=== PATIENT | female | born 2000 | race Caucasian/White ===

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

== ENCOUNTER 2021-09-01 01:25 | Observation (INO) | payer OTHER ==
[~2021-09-01] VITALS: Ht 165.1 cm; Wt 76.5 kg
[2021-09-01 02:02] LABS: COLLECTION METHOD CLEAN CATCH
[2021-09-01 02:11] LABS: BUDDING YEAST Present (NOT PRESENT); MUCOUS Present (NOT PRESENT); URINE BACTERIA None Seen /hpf (NONE SEEN); URINE RBC 0-2 /hpf (0-2)
[2021-09-01 02:12] LABS: PH 6 (5-8); URINE APPEARANCE Clear (CLEAR/HAZY); URINE BILIRUBIN Negative (NEGATIVE); URINE BLOOD Negative (NEGATIVE); URINE COLOR Yellow (YELLOW); URINE GLUCOSE Negative (NEGATIVE); URINE KETONE 1+ (NEGATIVE); URINE LEUKOCYTE ESTERASE Negative (NEGATIVE); URINE NITRATE Negative (NEGATIVE); URINE PROTEIN(semi-quant) Negative (NEGATIVE); URINE UROBILINOGEN Negative (NEGATIVE)
[2021-09-01 02:17] LABS: TRICYCLIC ANTIDEPRESS URINE NEGATIVE
[2021-09-01 02:40] LABS: BASO % 0.2 % (0.0-2.0); GRAN # 11.7 K/mm3 (1.4-6.5); GRAN % 89.1 % (42.2-75.2); HEMATOCRIT 40.8 % (35.0-45.0); HEMOGLOBIN 14.1 g/dl (12.0-15.0); LYMPH % 7.7 % (20.0-51.0); MEAN CELL VOLUME 87 fl (80.0-95.0); MEAN CORPUSCULAR HEMOGLOBIN 30 pg (26-32); MEAN CORPUSCULAR HGB CONC 35 g/dl (33.0-37.0); MONO # 0.4 K/mm3 (0.1-0.6); MONO % 2.8 % (1.7-9.3); PLATELET COUNT 277 K/mm3 (130-400); RED BLOOD COUNT 4.67 M/mm3 (4.10-5.30); REDCELL DISTRIBUTION WIDTH-CV 11.9 % (11.5-14.5)
[2021-09-01 03:01] LABS: ALANINE AMINOTRANSFERASE 35 U/L (0-55); ALKALINE PHOSPHATASE 53 U/L (40-150); ANION GAP 11 mmol/L (7-16); AST,SGOT 20 U/L (5-34); BILIRUBIN,TOTAL 0.4 mg/dL (0.2-1.2); BLOOD UREA NITROGEN 10 mg/dL (7-19); CALCIUM 9.6 mg/dL (8.4-10.2); CARBON DIOXIDE 22 mmol/L (22-29); CHLORIDE 105 mmol/L (98-107); CREATININE, serum 0.87 mg/dL (0.57-1.11); GLUCOSE 107 mg/dL (70-99); LIPASE 17 U/L (8-78); POTASSIUM 3.9 mmol/L (3.5-4.5); SODIUM 138 mmol/L (136-145); TOTAL PROTEIN 7.5 gm/dL (6.2-8.1)
[2021-09-01 03:07] LABS: TROPONIN-I < 0.010 ng/mL (0.00-0.033)
--- NOTE | 2021-09-01 08:10 | NUR ---
PT TO FLOOR IN ROOM 349 FROM ED. PT IS A/O X4. LUNGS CTA, BOWEL SOUNDS PRESENT. PT C\O RLQ PX 4\10. PLAN ON APPY LATER TODAY. REPORT FROM [facility]. ASSESSMENTS COMPLETE. ORIENTED PATIENT TO ROOM.
[2021-09-01 08:49] VITALS: BP 112/64; PULSE 97; TEMP 98.7
--- NOTE | 2021-09-01 10:29 | NUR ---
Social Work student and SHARONA Valle met with patient to discuss discharge planning. Patient lives here in [place] with her fiance, Graeme(ph#[phone]). Patient's listed EC is her mother, Mark(ph#[phone]). Patient states that her PCP is Dr. Hendricks, and she receives her medications from [facility]. Patient does not utilize any DME, and she is independent with her ADL's. Patient does not have a DPOA-HC on file. Patient does not have any children. Discharge plan: Home
[2021-09-01] MEDS ORDERED: SPRINTEC 35 MCG1 TAB PO (10:32)
[2021-09-01 11:34] VITALS: BP 120/61; PULSE 90; TEMP 98.5
--- NOTE | 2021-09-01 12:07 | NUR ---
PT TO SURGERY PER BED @1150
[2021-09-01] MEDS ORDERED: NORCO 325 MG-51 TAB PO (12:47)
[2021-09-01 13:12] VITALS: TEMP 98.5
[2021-09-01 13:50] VITALS: BP 116/59; PULSE 77
--- NOTE | 2021-09-01 13:50 | NUR ---
Patient to room 7 per hospital bed and stands and tranfers from bed to cart. Tolerates activity well. IV fluids infusing. Bandaids x3 on abdomen covering lap sites dry and intact. Siderails up x2 and call light in reach. Friend in room. Taking sips of water. Denies pain or nausea.
[2021-09-01 14:05] VITALS: BP 99/53; PULSE 83
--- NOTE | 2021-09-01 14:05 | NUR ---
Continues to deny nausea or pain. Given muffin to eat and sipping on water.
[2021-09-01 14:20] VITALS: BP 104/56; PULSE 83
--- NOTE | 2021-09-01 14:20 | NUR ---
Patient continues to deny pain or nausea.
--- NOTE | 2021-09-01 14:25 | NUR ---
IV to INT and ambulates to the bathroom. Gait is steady.
--- NOTE | 2021-09-01 14:30 | NUR ---
Patient voids and returns to room. INT needle discontinued and site is free of redness or swelling. Patient dresses self. Continues to deny pain or nausea.
--- NOTE | 2021-09-01 14:43 | NUR ---
Dismissal instructions given and voices understanding of these. Instructed to get pain medication from pharmacy. Provided office number for any questions or concerns.
--- NOTE | 2021-09-01 14:49 | NUR ---
Patient taken per wheelchair to the front entrance and assisted into private vehicle driven by friend and dismissed to home with instructions in hand.
== END 2021-09-01 14:49 | disposition home or self-care (01) ==
LOC: COL.ER 01:25 → SURG 04:17
PROVIDERS: Student in an Organized Health Care Education/Training Program; ADMIT Surgery
DX: K35.80 Unspecified acute appendicitis (principal)
CPT/HCPCS: G0378; J0690; J1170; J1885; J1956; J2250; J2270; J2405; J2704; J3010; J7120; Q9967